=== PATIENT | male | born 1990 | race American Indian/Alaskan Native ===

== ENCOUNTER 2017-10-24 08:20 | Emergency (ER) | payer SELFPAY ==
[2017-10-24 09:09] VITALS: BP 126/84
--- NOTE | 2017-10-24 10:53 | Cat Scan Report ---
Cranial CT without contrast. History: Headache. Findings: The brain parenchyma is normal. There is no evidence of hemorrhage or infarct. No extra-axial collections are seen. The ventricles are normal in size and contour. There are no masses or extra-axial collections. The calvarium is intact. Impression: Normal study.
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
[2017-10-24] MEDS ORDERED: MOTRIN PO ONE (12:19)
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
== END 2017-10-24 12:45 | disposition home or self-care (01) ==
LOC: ED 08:20
DX: G43.009 Migraine without aura, not intractable, without status migrainosus (principal); V89.2XXA Person injured in unspecified motor-vehicle accident, traffic, initial encounter; Y93.89 Activity, other specified; Y99.8 Other external cause status; Y92.410 Unspecified street and highway as the place of occurrence of the external cause
CPT/HCPCS: 70450; 70486